=== PATIENT | female | born 1960 | race African-American/Black ===

== ENCOUNTER 2018-03-15 06:43 | Inpatient (IN) ==
--- NOTE | 2018-03-14 17:00 | Discharge Summary ---
<Nila Ramirez - Last Filed: 03/14/18 16:57> Date of Encounter: 03/14/18 - Discharge Diagnosis (1) Status post bilateral knee replacements Priority: Primary Status: Acute (2) Arthritis of both knees Priority: Primary Status: Chronic (3) HTN (hypertension) Priority: Secondary Status: Chronic Qualifiers: Hypertension type: unspecified Qualified Code(s): I10 - Essential (primary ) hypertension (4) Obesity Priority: Secondary Status: Chronic Qualifiers: Obesity type: unspecified obesity type Obesity classification: unspecified obesity classification Serious obesity comorbidity presence: unspecified whether serious comorbidity present Qualified Code(s): E66.9 - Obesity, unspecified (5) History of back pain Priority: Secondary Status: Chronic - Hospital Course Hospital course: Ms. Hernadez is a 57 year old female - Time Spent with Patient Total time spent providing and/or coordinating discharge services: - Discharge Medications Home Medications: Aspirin Enteric Coated [Aspirin EC] 325 mg PO BID 10 Days #20 tablet. [Rx] Oxycodone HCl 5 mg PO Q6H PRN 7 Days #28 tablet 03/14/18 [Rx] Acetaminophen/Butalbital/Caffe [Fioricet] 1 tab PO Q4H PRN 03/15/18 [History] Biotin [Robinson Biotin] 10,000 mcg PO DAILY 03/15/18 [History] Cyclobenzaprine [Flexeril] 10 mg PO TID PRN 03/15/18 [History] Gabapentin [Neurontin] 100 mg PO TID 03/15/18 [History] Ibuprofen [Motrin Ib] 800 mg PO TID PRN 03/15/18 [History] Meloxicam 15 mg PO DAILY 03/15/18 [History] Triamterene/HCTZ 37.5/25mg [Dyazide] 1 tab PO DAILY 03/15/18 [History] traZODone [TraZODone] 50 mg PO HS 03/15/18 [History] Allergies/Adverse Reactions: 3 Allergy/AdvReac Type Severity Reaction Status Date / Time shellfish derived AdvReac Vomiting Verified 03/15/18 07:37 Primary care physician: Rickey Davies MD - Patient Status Disposition: Home Health Service Condition: Good - Discharge Instructions Follow Up With: Rickey Davies MD [Primary Care Provider] - <Ciaran Michele Sal - Last Filed: 03/18/18 06:25> Orders not resulted at time of discharge: Pending orders 03/15/18 01:00 XR knee LT limited 1-2V [XR] Routine XR knee RT limited 1-2V [XR] Routine Hemoglobin and Hematocrit [HEME] Routine 03/15/18 07:58 US anesthesia pain block [US] Routine Date of Encounter: 03/18/18 Time of Encounter: 06:25 - Discharge Diagnosis (1) Obesity (BMI 35.0-39.9 without comorbidity) Priority: Secondary Status: Chronic (2) Status post bilateral knee replacements Priority: Primary Status: Acute (3) Arthritis of both knees Priority: Primary Status: Chronic (4) HTN (hypertension) Priority: Secondary Status: Chronic Qualifiers: Hypertension type: unspecified Qualified Code(s): I10 - Essential (primary ) hypertension (5) History of back pain Priority: Secondary Status: Chronic (6) Acute blood loss anemia Priority: Primary Status: Acute - Hospital Course Hospital course: Ms. Hernadez is a 57 year old female As post bilateral total knee replacement. The patient had an uneventful postoperative course. They received antibiotics and physical therapy and were discharged in stable condition. There will follow -up in the office in 2 weeks. - Time Spent with Patient Total time spent providing and/or coordinating discharge services: Primary care physician: Rickey Davies MD - Patient Status Functional capacity at discharge: uses cane/walker Overall status at discharge: patient is progressing back to baseline
--- NOTE | 2018-03-14 17:02 | Physician Discharge Referral ---
Home Health/Hosp Referral Info Transfer to: Home Health Attending Provider: Dr. Ciaran Michele - Diagnosis (1) Status post bilateral knee replacements Priority: Primary Status: Acute (2) Arthritis of both knees Priority: Primary Status: Chronic (3) HTN (hypertension) Priority: Secondary Status: Chronic (4) Obesity Priority: Secondary Status: Chronic (5) History of back pain Priority: Secondary Status: Chronic - Respiratory Orders Smoking Cessation: Smoking cessation has been advised. For more information, call the [place] Tobacco Quit Line at 3-471-BYGA-NOW. - Dressing/Wound Care Site: Bilateral knees Type of Dressing/Treatments w/Frequency: Opsite placed. Keep dressing intact until first follow up appointment. If greater than 50% saturated, notify office, remove dressing and place appropriate dressing back in place. Leave Zipline intact. Opsite dressing is water resistant, not water-proof. OK to shower, but do not get dressing wet. - Diet/Nutrition Diet/Nutrition Orders: Regular - Activity Activity Orders: Up ad marian, Ambulate, Chair, Walker Activity: List: Total Knee replacement Precautions x 6 weeks Apply cold therapy wrap 3-6x/day for 20 minutes at a time. Encourage ambulation throughout the day and incentive spirometer 10x/hour. Elevate affected extremity above heart as tolerated. Brace: Wear knee immobilizer at night x 2 weeks. - Services Needed Following services are medically necessary services: Nursing, Home Health Aide, Physical Therapy, Occupational Therapy - Transfer Medications Prescriptions: Aspirin Enteric Coated [Aspirin EC] 325 mg PO BID 10 Days #20 tablet. Oxycodone HCl 5 mg PO Q6H PRN 7 Days #28 tablet PRN Reason: Severe Pain Home Medications: Aspirin Enteric Coated [Aspirin EC] 325 mg PO BID 10 Days #20 tablet. [Rx] Oxycodone HCl 5 mg PO Q6H PRN 7 Days #28 tablet 03/14/18 [Rx] Allergies/Adverse Reactions: 3 Allergy/AdvReac Type Severity Reaction Status Date / Time shellfish derived Allergy Vomiting Unverified 03/02/18 08:22 Certification: Further, I certify that my clinical findings support that this patient is homebound (i.e. absences from home require considerable and taxing effort and are for medical reasons or adventism services or infrequently or short duration when for other reasons) because: Homebound Reason: Post-surgery restriction and or conditions limit ability to leave home Attestation: My signature below is to certify that this patient is under my care and that I, or nurse practitioner, or a physician undertaker assistant working with me, has a face-to- face encounter with this patient.
--- NOTE | 2018-03-14 17:04 | Physician Discharge Referral ---
[facility] Referral Info Transfer To: [facility] Provider in Charge: Dr. Ciaran Michele - Diagnosis (1) Status post bilateral knee replacements Priority: Primary Status: Acute (2) Arthritis of both knees Priority: Primary Status: Chronic (3) HTN (hypertension) Priority: Secondary Status: Chronic (4) Obesity Priority: Secondary Status: Chronic (5) History of back pain Priority: Secondary Status: Chronic Expected Duration of Placement: Less than 30 days Prognosis: Good Aware of Diagnosis: Patient Aware of Prognosis: Patient - Transfer Medications Prescriptions: Aspirin Enteric Coated [Aspirin EC] 325 mg PO BID 10 Days #20 tablet. Oxycodone HCl 5 mg PO Q6H PRN 7 Days #28 tablet PRN Reason: Severe Pain Home Medications: Aspirin Enteric Coated [Aspirin EC] 325 mg PO BID 10 Days #20 tablet. [Rx] Oxycodone HCl 5 mg PO Q6H PRN 7 Days #28 tablet 03/14/18 [Rx] Allergies/Adverse Reactions: 3 Allergy/AdvReac Type Severity Reaction Status Date / Time shellfish derived Allergy Vomiting Unverified 03/02/18 08:22 - Respiratory Orders Smoking Cessation: Smoking cessation has been advised. For more information, call the [place] Tobacco Quit Line at 2-919-UJID-NOW. - Ancillary Orders May use pressure relief devices daily prn, May go on [place] w/family/respon alliance party w /meds at nurse discretion PRN, May consult with Dentist, Manager Group, Corner Block Cutter PRN - Mobility Orders Chair, Ambulate - Rehabiliation Orders Rehab Potential: Good Rehab Orders: Evaluation for Physical Therapy, Evaluation for Occupational Therapy Other: Total Knee replacement Precautions x 6 weeks Apply cold therapy wrap 3-6x/day for 20 minutes at a time. Encourage ambulation throughout the day and incentive spirometer 10x/hour. Elevate affected extremity above heart as tolerated. Brace: Wear knee immobilizer at night x 2 weeks. - Treatments Skin tear care topically daily PRN per policy List/Other: Opsite placed. Keep dressing intact until first follow up appointment. If greater than 50% saturated, notify office, remove dressing and place appropriate dressing back in place. Leave Zipline intact. Opsite dressing is water resistant, not water-proof. OK to shower, but do not get dressing wet. - Diet Orders Regular CERTIFICATION: I certify that the transfer of the above named patient to an Extended Care Facility is necessary for the continuing treatment of the diagnosis listed. The above information is true and accurate reflection of patient's current condition. Confidential - Redisclosure prohibited without a patient's written consent.
[2018-03-15] MEDS ORDERED: CeFAZolin Syr 2,000MG/20 ML 2,000 MG/20 ML SYRINGE IVPB ONE (07:05)
[2018-03-15] MEDS ORDERED: Ringers Solution, Lactated 1,000 ML IVC SCH (07:15)
[2018-03-15] MEDS ORDERED: *HR* FentaNYL (PF) 100 MCG/2 ML VIAL ONE ×2 (07:40→12:41)
[2018-03-15] MEDS ORDERED: *HR* Propofol 200 MG/20 ML VIAL IVP ONE ×2 (07:40→12:41)
[2018-03-15] MEDS ORDERED: *HR* Midazolam HCl 2 MG/2 ML VIAL ONE ×4 (07:40→12:41)
[2018-03-15] MEDS ORDERED: Lidocaine -MPF 2% 2 ML VIAL ONE ×2 (07:46→12:41)
[2018-03-15] MEDS ORDERED: Ethanol\\Acetic Acid\\Na Ace\\Ben 1,000 ML IRRIG.SOLN IR ONE (07:49)
[2018-03-15] MEDS ORDERED: Pregabalin 75 MG CAPSULE PO ONE (07:57)
[2018-03-15] MEDS ORDERED: Famotidine 20 MG/2 ML VIAL IVP ONE (07:58)
--- NOTE | 2018-03-15 08:04 | History & Physical Report ---
Date of Encounter: 03/15/18 Time of Encounter: 08:04 24 Hour HP Update - Instructions Instructions: If the History and Physical is less than 30 days old and was completed prior to A.M. admission and or procedure and has NOT been updated on calendar day of procedure please complete this update prior to performing procedure. - Update Patient reports changes in Medical Condition: No Changes in examination, assessment, or condition: No Changes in Medication: No Preop tests/diagnostics Reviewed: Yes Surgery Remains Indicated: Yes Consent for Planned Operative Procedure(s) Verified: Yes - Pre-Operative Checklist Preoperative Checklist Indicated: No Prophylactic Antibiotic Ordered: Yes Is VTE Prophylaxis Indicated?: Yes
[2018-03-15] MEDS ORDERED: ROPIVACAINE HCL/PF 0.5% 30 ML VIAL ONE (08:11)
[2018-03-15] MEDS ORDERED: Dexmedetomidine HCl 200 MCG/50 ML MLS IVC ONE (08:11)
[2018-03-15] MEDS ORDERED: Morphine Sulfate/PF 5mg/10mL Vial ONE (08:11)
[2018-03-15] MEDS ORDERED: [UNRECOGNIZED DRUG - OTHER] IVC ONE (08:11)
--- NOTE | 2018-03-15 08:15 | Anesthesia Evaluation PreOp ---
Date of Encounter: 03/15/18 Time of Encounter: 08:10 - Past History Planned Operation: Bilateral TKA Cardiac History: HTN, Hyperlipidemia Pulmonary History: Denies Any Significant HX POULTRYMAN History: Other (Migraine, Lumbar Ablation) Other Medical History: Denies Any Significant HX Anesthesia History: No Prior Anesthetic Complications : No Alcohol Use: none Drug use: none Medications and Allergies Aspirin Enteric Coated [Aspirin EC] 325 mg PO BID 10 Days #20 tablet. [Rx] Oxycodone HCl 5 mg PO Q6H PRN 7 Days #28 tablet 03/14/18 [Rx] Acetaminophen/Butalbital/Caffe [Fioricet] 1 tab PO Q4H PRN 03/15/18 [History] Biotin [Robinson Biotin] 10,000 mcg PO DAILY 03/15/18 [History] Cyclobenzaprine [Flexeril] 10 mg PO TID PRN 03/15/18 [History] Gabapentin [Neurontin] 100 mg PO TID 03/15/18 [History] Ibuprofen [Motrin Ib] 800 mg PO TID PRN 03/15/18 [History] Meloxicam 15 mg PO DAILY 03/15/18 [History] Triamterene/HCTZ 37.5/25mg [Dyazide] 1 tab PO DAILY 03/15/18 [History] traZODone [TraZODone] 50 mg PO HS 03/15/18 [History] 3 Allergy/AdvReac Type Severity Reaction Status Date / Time shellfish derived AdvReac Vomiting Verified 03/15/18 07:37 - Meds/Allergy Pre-op Review Medications Reviewed: Yes Allergies Reviewed: Yes Beta Blockers on Current Med List: No Anesthesia Results - Labs Laboratory Tests 03/02/18 03/02/18 03/02/18 08:22 08:22 08:22 Hgb 13.5 Hct 38.6 PT 10.5 INR 1.0 APTT 29.5 Sodium 138 Potassium 4.7 BUN 16 Creatinine 0.94 - Imaging EKG: report reviewed (SR) Anesthesia Exam O2 Sat Height 1.52 m Height 1.52 m Height 1.52 m Weight 85.275 kg Weight 85.275 kg Weight 85.275 kg O2 Sat by Pulse Oximetry 100 O2 Sat by Pulse Oximetry 100 Vital Signs Temp Pulse Resp BP Pulse Ox 97.9 F 63 18 143/88 100 03/15/18 07:07 03/15/18 07:07 03/15/18 07:07 03/15/18 07:07 03/15/18 07:07 Height: 5'0 Weight: 188 NPO (# of Hours): MN Pain Scale: 0 - HEENT Pupil (Motor): Pupils equal, EOMI Mallampati: II Teeth: Normal Oral Opening: Greater than 3 - POULTRYMAN LOC: Oriented POULTRYMAN Motor: Normal RUE, Normal LUE, Normal RLE, Normal LLE, Normal Face POULTRYMAN Sensory: Normal: RUE, LUE, RLE, LLE, Face - Cardiac Rhythm: Regular Murmur: None JVD: No Carotid Bruit: No - Pulmonary Breath Sounds: bilateral Clear Respiratory Effort: Symmetrical Anesthesia Assess/Plan ASA Score: 2 Modified [place] Scale for Level of Consciousness: Cooperative, oriented, and tranquil Anesthetic Plan: General, Regional, MAC (Discussed SAB with Bilat Adductor Canal Block, possible GA, possible MAC, agrees to proceed) Monitoring Plan: Standard Monitors Recovery Plan: PACU
--- NOTE | 2018-03-15 08:54 | Anesthesia Procedures ---
Date of Encounter: 03/15/18 Time of Encounter: 08:12 Procedures: Anesthesia - Epidural/Spinal Patient ID/Chart reviewed: Yes Patient examined: Yes Supplemental Oxygen: Nasal Cannula (4) Supplemental Oxygen Rate (L/min): 4 Sedation: Versed (mg): 2 Sedation: Fentanyl (mcg): 50 Site Prep: Aseptic Technique, Sterile prep and drape, Povidone-Iodine 1% Patient position: upright Local Anesthetic: Lidocaine 1% Amount of Local Anesthetic used: 5 Interspace Used: L3-L4 Blood: No CSF: Yes Paresthesia: No Spinal Needle Gauge: 24 Spinal Dose: 10mg isobaric marcaine, Duramoprh 0.3mg Vitals + FHT's: Vital Signs/O2 Sat/Glucose, Most Current Temp Pulse Resp BP Pulse Ox 03/15/18 08:50 71 13 124/72 100 03/15/18 08:45 73 13 122/67 100 03/15/18 08:40 73 15 126/73 100 03/15/18 08:35 71 14 155/104 90 03/15/18 08:30 71 16 156/101 97 03/15/18 08:25 74 17 180/110 94 03/15/18 07:25 97.9 F 63 18 143/88 100 03/15/18 07:07 97.9 F 63 18 143/88 100 - Nerve Block Procedure Date: 03/15/18 Time: 08:30 Pre-op Diagnosis: Bilat Knee Arthropathy OA Surgical Procedure: Bilateral TKA Checklist: Correct Patient Identifier Blood Thinner: No Monitor Applied: EKG, BP, Pulse Oximetry Supplemental Oxygen via Nasal Cannula (L/min): 4 Sedation: Versed (mg): 2 Sedation: Fentanyl (mcg): 50 Indication: Post Op Analgesia Pre-op Neuro Deficits: No Block Type: Other (Adductor Canal Block) Catheter placed: No Depth at skin (cm): 4 Sterile Technique: Yes Ultrasound used: Yes Anatomy identified: Yes Visual spread of Local: Yes Neuro Stimulation: No Blood on Needle Aspiration: No Smooth Injection of Local: Yes Pain with Injection of Local: No Prep: Chlorhexadine Needle: 21 x 100 mm Stimuplex Local: Ropivacaine (0.5%), Other (Precedex 20 microgram) Volume (cc): 40cc Number of Attempts: 1 Complications: None/effective block Vitals: Vital Signs/O2 Sat/Glucose, Most Current Temp Pulse Resp BP Pulse Ox 03/15/18 08:50 71 13 124/72 100 03/15/18 08:45 73 13 122/67 100 03/15/18 08:40 73 15 126/73 100 03/15/18 08:35 71 14 155/104 90 03/15/18 08:30 71 16 156/101 97 03/15/18 08:25 74 17 180/110 94 03/15/18 07:25 97.9 F 63 18 143/88 100 03/15/18 07:07 97.9 F 63 18 143/88 100
[2018-03-15] MEDS ORDERED: Acetaminophen IV 1,000 MG/100 ML INFUS..BTL ONE (09:24)
[2018-03-15] MEDS ORDERED: *HR* OxyCODONE Immed Rel 5 MG TABLET PO PRN (09:27)
[2018-03-15] MEDS ORDERED: Ondansetron 4 MG/2 ML VIAL IVP PRN (09:27)
[2018-03-15] MEDS ORDERED: *HR* FentaNYL (PF) 100 MCG/2 ML VIAL IVP PRN (09:27)
[2018-03-15] MEDS ORDERED: Ketorolac 15 MG/ML VIAL IVP ONE (09:27)
[2018-03-15] MEDS ORDERED: *HR* PHENYLEPHRINE 1,000 MCG/10 ML SYRINGE IVP ONE (09:44)
[2018-03-15] MEDS ORDERED: EPHEDrine 50 MG/ML VIAL ONE ×2 (09:54→12:41)
--- NOTE | 2018-03-15 10:40 | Orthopedic Operative Note ---
Date of procedure: 03/15/18 Pre-op diagnosis: Bilateral knee arthritis Post-op diagnosis: same Procedure: Procedure: Bilateral robotic-assisted Total knee replacement Estimated blood loss: 500 cc Hardware: Metal and polyethylene replacement. Brandie Femur: 1 Tibia: 2 TS insert:11 Patella: 36 Exam Under anesthesia: Left knee 0 degree flexion-extension, 7 degree varus. Right knee 0 degrees flexion extension 7 degree varus as calculated by the robot full flexion and no instability Procedural Notes: Grade 4 arthritic changes all 3 compartments both knees Operative procedure: The patient was brought to the operating room and placed on the operating room table. After general anesthesia was administered the operative knee was examined. Findings were noted in the exam under anesthesia. Next will be dictation for both knees surgery began with the left knee followed by the right knee. Any differences will be highlighted. The operative extremity was prepped and draped in sterile surgical fashion. The patient received IV antibiotics prior to skin incision. A standard midline incision was made centered over the patella. The incision was made through the skin and subcutaneous tissue. A medial parapatellar tendon approach was performed. Care was taken to preserve tissue along the medial aspect of the patella. And to protect the patella tendon. The deep MCL was released off the medial tibia. The infra patella fat pad was excised. The patella was everted and cut was made at the level of the insertion of the quadriceps and patella tendon. The patella was sized to a 36 the guide was seated and the lug holes are drilled. Knee was brought into flexion. Patient noted to have grade 4 arthritic changes all 3 compartments in both knees. Steinmann pins were placed in the tibia and the femur for the tibial and femoral arrays respectively. Checkpoints were also placed in the tibia and the femur for calculation purposes. The knee including the femur and the tibial registered. Osteophytes, ACL and PCL were excised at this point. Extension and flexion were assessed with a valgus stress components were adjusted on the computer to balance the knee. Femoral cuts were made first with robotic assistance, these included the anterior cut posterior cuts chamfer cuts. Tibial cut was then performed with robotic assistance as well. Bone fragments were removed, as well as the medial and lateral meniscus. The size 1 femoral guide was seated box cut was made lug holes are drilled. The size 2 tibial tray was seated and prepared with the fin cutter. Trial reduction with the 11 TS Valeria revealed extension of 0 degree and 3 degree varus left knee 5 degree varus right knee full flexion. No varus valgus instability. Trial reduction revealed excellent patella tracking. All trial components were removed all bony surfaces were irrigated. The Tibia was seated followed by the femur, The Valeria size 11 was seated and secured patella. Patient had similar findings for motion and stability. The knee was closed by the PA. The knee was then irrigated out with 2 L of pulse irrigation. The extensor mechanism was closed with #2 FiberWire suture and #2 PDS suture. The subcutaneous tissue was then irrigated and closed deep with #1 PDS suture superficially with 0 PDS suture and skin was closed with zip tie The patient was then placed in a sterile dressing and a postoperative brace extubated and transferred to recovery room in stable condition. Anesthesia: GETA, spinal Surgeon: Ciaran Michele Was there an collections assistant present: Yes Brusher: Wilma Blanco Estimated blood loss (cc): 500 Condition: stable Disposition: PACU
[2018-03-15 12:08] LABS: Hematocrit 32.5 % (35.3-44.9); Hemoglobin 11.4 g/dL (11.5-15.4)
--- NOTE | 2018-03-15 12:11 | Anesthesia Evaluation Post Op ---
Date of Encounter: 03/15/18 Time of Encounter: 12:10 - Vital Signs Vital Signs: Vital Signs/O2 Sat/Glucose, Most Current Temp Pulse Resp BP Pulse Ox 03/15/18 11:50 97.3 F L 60 18 95/66 100 03/15/18 11:40 67 20 98/65 99 03/15/18 11:30 72 20 127/79 99 03/15/18 11:20 97.6 F 74 24 127/89 100 03/15/18 08:50 71 13 124/72 100 03/15/18 08:45 73 13 122/67 100 03/15/18 08:40 73 15 126/73 100 03/15/18 08:35 71 14 155/104 90 03/15/18 08:30 71 16 156/101 97 03/15/18 08:25 74 17 180/110 94 - Lungs Lungs: Clear Ascult./Percussion - Airway Airway: Non-obstructed - Cardiovascular Regular Rate - Mental Status Mental Status: Alert & Oriented, Answers Appropriately - Pain Pain Scale: 0 - Nausea Vomiting Nausea Vomiting: Not Present - Hydration Hydration: Ice chips - Discharge PostOp Status: Transfer Patient to floor
[2018-03-15] MEDS ORDERED: Sennosides 8.6 MG TABLET PO PRN (12:42)
[2018-03-15] MEDS ORDERED: Acetaminophen/Butalbital/CaffeineTABLET PO PRN (12:42)
[2018-03-15] MEDS ORDERED: Naloxone 0.4 MG/ML INJ IVP PRN (12:42)
[2018-03-15] MEDS ORDERED: Temazepam 15 MG CAPSULE PO PRN (12:42)
[2018-03-15] MEDS ORDERED: MOM Conc 10 ML UD.LIQ PO PRN (12:42)
[2018-03-15] MEDS: (Biotin [Mega Biotin] 10,000 MCG) PO SCH (13:26)
[2018-03-15] MEDS: Gabapentin 100 MG CAPSULE PO SCH ×3 (13:26→20:23)
[2018-03-15] MEDS: Ringers Solution, Lactated 1,000 ML IVC SCH (13:34)
[2018-03-15] MEDS: *HR* Enoxaparin 30 MG/0.3 ML SYRINGE SQ SCH (16:36)
[2018-03-15] MEDS ORDERED: *HR* Enoxaparin 30 MG/0.3 ML SYRINGE SQ SCH (18:00)
[2018-03-15] MEDS: traZODone 50 MG TABLET PO SCH (20:23)
[2018-03-15] MEDS: Ondansetron 4 MG/2 ML VIAL IVP PRN (20:24)
[2018-03-16 02:13] LABS: Hematocrit 27.8 % (35.3-44.9)
[2018-03-16 02:30] LABS: BUN/Creatinine Ratio 20 (6-26); Blood Urea Nitrogen 17 mg/dL (6-20); Calcium 9.1 mg/dL (8.6-10.3); Carbon Dioxide 19 mEq/L (23-29); Chloride 108 mEq/L (98-107); Glucose 124 mg/dL (70-105); Osmolality,Calculated 289 (280-300); Potassium 5.4 mEq/L (3.5-5.1); Sodium 138 mEq/L (136-145); eGFR For African Americans > 60 (> 60); eGFR For Non-African Americans > 60 (> 60)
[2018-03-16] MEDS: Ringers Solution, Lactated 1,000 ML IVC SCH ×2 (05:12→19:00)
[2018-03-16] MEDS: *HR* Enoxaparin 30 MG/0.3 ML SYRINGE SQ SCH ×2 (05:14→18:01)
[2018-03-16] MEDS: Acetaminophen IV 1,000 MG/100 ML INFUS..BTL IVPB PRN ×2 (05:15→10:52)
--- NOTE | 2018-03-16 06:26 | Orthopedics Progress Note ---
Date of Encounter: 03/16/18 Time of Encounter: 06:26 - Assessment and Plan (1) Obesity (BMI 35.0-39.9 without comorbidity) Current Visit: Yes Status: Chronic (2) Status post bilateral knee replacements Current Visit: No Status: Acute (3) Arthritis of both knees Current Visit: No Status: Chronic (4) HTN (hypertension) Current Visit: No Status: Chronic Qualifiers: Hypertension type: unspecified Qualified Code(s): I10 - Essential (primary ) hypertension (5) History of back pain Current Visit: No Status: Chronic (6) Acute blood loss anemia Current Visit: Yes Status: Acute Subjective Interval history: Patient was seen this morning doing well without complaints. Afebrile vital signs stable. Operative extremity: Neurovascularly intact Dressing clean dry and intact Calves nontender Assessment and plan: Continue with postoperative care Hematocrit 27.8 Objective Vital signs: Vital Signs Temp Pulse Resp BP Pulse Ox 03/16/18 03:29 97.7 F 76 16 104/67 95 03/15/18 23:45 97.6 F 69 16 96/61 100 03/15/18 20:55 100 03/15/18 19:35 97.7 F 65 16 93/61 100 03/15/18 18:01 58 99/66 03/15/18 16:25 97.4 F L 64 18 95/60 98 03/15/18 14:50 97.7 F 58 14 92/64 97 03/15/18 13:50 97.6 F 61 16 107/65 97 03/15/18 13:20 97.6 F 77 15 100/62 98 03/15/18 12:53 97.4 F L 63 18 97/64 95 03/15/18 12:22 95 03/15/18 12:05 97.3 F L 68 18 97/63 99 03/15/18 11:50 97.3 F L 60 18 95/66 100 03/15/18 11:40 67 20 98/65 99 03/15/18 11:30 72 20 127/79 99 03/15/18 11:20 97.6 F 74 24 127/89 100 03/15/18 08:50 71 13 124/72 100 03/15/18 08:45 73 13 122/67 100 03/15/18 08:40 73 15 126/73 100 03/15/18 08:35 71 14 155/104 90 03/15/18 08:30 71 16 156/101 97 03/15/18 08:25 74 17 180/110 94 03/15/18 07:25 97.9 F 63 18 143/88 100 03/15/18 07:07 97.9 F 63 18 143/88 100 Intake and Output 03/15/18 03/15/18 03/16/18 15:59 23:59 07:59 Intake Total 100 / 100 1100 / 1100 Output Total 500 / 500 250 / 250 Balance -500 / -500 -150 / -150 1100 / 1100 Intake: IV Fluids 100 / 100 1100 / 1100 Lactated Ringers 1,000 ML @ 75 1000 / 1000 mls/hr IVC .[id number] [facility] Rx#: [id number] Ofirmev 1,000 mg/100 ml 1,000 100 / 100 mg In 100 ml @ 400 mls/hr IVPB Q6HR PRN Rx#:[id number] Ancef 2,000 MG In 0.9 % Sodium 100 / 100 Chloride 100 ML @ 200 mls/hr IVPB Q8HR [facility] Rx#:[id number] Output: Urine 250 / 250 Estimated Blood Loss 500 / 500 Other: # Voids 1 Weight 108.7 kg Patient Weight 03/16/18 23:59 Weight 108.7 kg - Labs CBC & BMP: 03/16/18 02:05 03/16/18 02:05 Labs: Abnormal lab results Hgb 10.0 g/dL (11.5-15.4) L 03/16/18 02:05 Hct 27.8 % (35.3-44.9) L 03/16/18 02:05 Potassium 5.4 mEq/L (3.5-5.1) H 03/16/18 02:05 Chloride 108 mEq/L (98-107) H 03/16/18 02:05 Carbon Dioxide 19 mEq/L (23-29) L 03/16/18 02:05 Glucose 124 mg/dL (70-105) H 03/16/18 02:05 - VTE Documentation of Mechanical Device: Venous foot pump, device Consult Discharge Plan - Plan Referrals: Rickey Davies MD [Primary Care Provider] -
[2018-03-16] MEDS: Gabapentin 100 MG CAPSULE PO SCH ×3 (07:53→20:20)
[2018-03-16] MEDS: *HR* OxyCODONE/APAP 5/325 TABLET PO PRN (07:53)
[2018-03-16] MEDS: (Biotin [Mega Biotin] 10,000 MCG) PO SCH (07:54)
[2018-03-16] MEDS: Ondansetron 4 MG/2 ML VIAL IVP PRN ×2 (07:58→13:43)
[2018-03-16] MEDS: traMADol 50 MG TABLET PO PRN (11:15)
--- NOTE | 2018-03-16 11:57 | Event Note ---
Date of Encounter: 03/16/18 Time of Encounter: 11:54 PCR- POD#1 status post bilateral total knee replacement Dr. Michele 03/15/18 PCR - Patient seen at bedside. Patient's spouse sleeping on couch. He did not wake up for visit. Labwork and medications reviewed. H/H 07/24.8 Vital signs reviewed. Pain control: Adequate Participating in PT. All questions and concerns addressed. Educated on use of incentive spirometer, ambulation, and hydration. Patient educated on post-operative restrictions and care. Addressed: see above. D/C plan: Home with home health - possibly tomorrow
[2018-03-16] MEDS: *HR* OxyCODONE Immed Rel 5 MG TABLET PO PRN ×2 (13:43→18:01)
[2018-03-16] MEDS: traZODone 50 MG TABLET PO SCH (20:20)
[2018-03-17] MEDS: *HR* OxyCODONE Immed Rel 5 MG TABLET PO PRN ×5 (00:03→20:06)
[2018-03-17] MEDS: Ondansetron 4 MG/2 ML VIAL IVP PRN ×4 (00:06→20:05)
[2018-03-17 01:49] LABS: Hematocrit 26.6 % (35.3-44.9); Hemoglobin 9.3 g/dL (11.5-15.4)
[2018-03-17 02:10] LABS: BUN/Creatinine Ratio 13 (6-26); Blood Urea Nitrogen 9 mg/dL (6-20); Calcium 9.2 mg/dL (8.6-10.3); Carbon Dioxide 26 mEq/L (23-29); Chloride 103 mEq/L (98-107); Glucose 154 mg/dL (70-105); Osmolality,Calculated 282 (280-300); Potassium 4.5 mEq/L (3.5-5.1); Sodium 135 mEq/L (136-145); eGFR For African Americans > 60 (> 60); eGFR For Non-African Americans > 60 (> 60)
[2018-03-17] MEDS: *HR* OxyCODONE/APAP 5/325 TABLET PO PRN ×3 (03:38→23:07)
[2018-03-17] MEDS: *HR* Enoxaparin 30 MG/0.3 ML SYRINGE SQ SCH ×2 (06:01→17:48)
[2018-03-17] MEDS ORDERED: Acetaminophen IV 1,000 MG/100 ML INFUS..BTL IVPB PRN (06:23)
[2018-03-17] MEDS: Gabapentin 100 MG CAPSULE PO SCH ×3 (08:16→20:05)
[2018-03-17] MEDS: Ketorolac 30 MG/ML VIAL IVP PRN ×2 (08:16→17:48)
--- NOTE | 2018-03-17 08:36 | Orthopedics Progress Note ---
Date of Encounter: 03/17/18 Time of Encounter: 08:36 - Assessment and Plan (1) Obesity (BMI 35.0-39.9 without comorbidity) Current Visit: Yes Status: Chronic (2) Status post bilateral knee replacements Current Visit: No Status: Acute (3) Arthritis of both knees Current Visit: No Status: Chronic (4) HTN (hypertension) Current Visit: No Status: Chronic Qualifiers: Hypertension type: unspecified Qualified Code(s): I10 - Essential (primary ) hypertension (5) History of back pain Current Visit: No Status: Chronic (6) Acute blood loss anemia Current Visit: Yes Status: Acute Subjective Interval history: Patient was seen this morning doing well without complaints. Afebrile vital signs stable. Operative extremity: Neurovascularly intact Dressing clean dry and intact Calves nontender Assessment and plan: Continue with postoperative care Hb 9.3 Objective Vital signs: Vital Signs Temp Pulse Resp BP Pulse Ox 03/17/18 07:11 98.5 F 112 16 188/97 99 03/17/18 03:29 98.7 F 103 18 182/95 97 03/16/18 23:43 98.9 F 99 16 143/82 97 03/16/18 20:27 99 03/16/18 19:34 98.6 F 86 14 153/82 99 03/16/18 15:22 97.6 F 70 16 130/78 100 03/16/18 11:19 97.6 F 68 18 108/67 95 Intake and Output 03/16/18 03/17/18 03/17/18 23:59 07:59 15:59 Intake Total 1400 / 1400 200 / 200 Output Total 250 / 250 0 / 0 Balance 1150 / 1150 200 / 200 Intake: IV Fluids 1000 / 1000 Lactated Ringers 1,000 ML @ 75 1000 / 1000 mls/hr IVC .[id number] Rx#: [id number] Oral 400 / 400 200 / 200 Output: Urine 250 / 250 0 / 0 Other: # Voids 1 1 Weight 109.58 kg Patient Weight 03/17/18 23:59 Weight 109.58 kg - Labs CBC & BMP: 03/17/18 01:19 03/17/18 01:19 Labs: Abnormal lab results Hgb 9.3 g/dL (11.5-15.4) L 03/17/18 01:19 Hct 26.6 % (35.3-44.9) L 03/17/18 01:19 Sodium 135 mEq/L (136-145) L 03/17/18 01:19 Glucose 154 mg/dL (70-105) H 03/17/18 01:19 - VTE Documentation of Mechanical Device: Venous foot pump, device Consult Discharge Plan - Plan Referrals: Rickey Davies MD [Primary Care Provider] -
[2018-03-17] MEDS: traMADol 50 MG TABLET PO PRN (13:39)
--- NOTE | 2018-03-17 18:26 | Event Note ---
Date of Encounter: 03/17/18 Time of Encounter: 11:55 PCR- POD#2 status post bilateral total knee replacement Dr. Michele 03/15/18 PCR - Patient seen at bedside. Patient's spouse at bedside. Labwork and medications reviewed. 03/16 H/H 10.8 03/17 H/H 9.3/.6 Vital signs reviewed. Pain control: Adequate Participating in PT. All questions and concerns addressed. Educated on use of incentive spirometer, ambulation, and hydration. Patient educated on post-operative restrictions and care. Addressed: see above. D/C plan: Home with home health - tomorrow rather than today secondary to patient unsteadiness - improving however patient feeling unsafe. Will have her continue with therapy services this afternoon and in the morning.
[2018-03-17] MEDS: traZODone 50 MG TABLET PO SCH (20:05)
[2018-03-18] MEDS: *HR* Enoxaparin 30 MG/0.3 ML SYRINGE SQ SCH ×2 (04:37→16:24)
[2018-03-18] MEDS: *HR* OxyCODONE Immed Rel 5 MG TABLET PO PRN ×5 (04:37→23:15)
[2018-03-18] MEDS: Ondansetron 4 MG/2 ML VIAL IVP PRN ×3 (04:37→23:18)
--- NOTE | 2018-03-18 06:26 | Orthopedics Progress Note ---
Date of Encounter: 03/18/18 Time of Encounter: 06:26 - Assessment and Plan (1) Obesity (BMI 35.0-39.9 without comorbidity) Current Visit: Yes Status: Chronic (2) Status post bilateral knee replacements Current Visit: No Status: Acute (3) Arthritis of both knees Current Visit: No Status: Chronic (4) HTN (hypertension) Current Visit: No Status: Chronic Qualifiers: Hypertension type: unspecified Qualified Code(s): I10 - Essential (primary ) hypertension (5) History of back pain Current Visit: No Status: Chronic (6) Acute blood loss anemia Current Visit: Yes Status: Acute Subjective Interval history: Patient was seen this morning doing well without complaints. Afebrile vital signs stable. Operative extremity: Neurovascularly intact Dressing clean dry and intact Calves nontender Assessment and plan: Continue with postoperative care Discharged today Objective Vital signs: Vital Signs Temp Pulse Resp BP Pulse Ox 03/18/18 04:28 98.6 F 107 16 120/74 96 03/17/18 23:17 98.7 F 107 16 111/71 98 03/17/18 21:10 99 03/17/18 18:39 99.5 F 124 16 119/69 99 03/17/18 15:27 99 F 116 16 163/95 98 03/17/18 10:59 98.6 F 96 16 160/89 99 03/17/18 07:11 98.5 F 112 16 188/97 99 Intake and Output 03/17/18 03/17/18 03/18/18 15:59 23:59 07:59 Intake Total 540 / 540 Balance 540 / 540 Intake: Oral 540 / 540 Other: Meal Lunch Percent of Meal Consumed 50% # Voids 1 2 - Labs CBC & BMP: 03/17/18 01:19 03/17/18 01:19 Labs: Abnormal lab results Hgb 9.3 g/dL (11.5-15.4) L 03/17/18 01:19 Hct 26.6 % (35.3-44.9) L 03/17/18 01:19 Sodium 135 mEq/L (136-145) L 03/17/18 01:19 Glucose 154 mg/dL (70-105) H 03/17/18 01:19 - VTE Documentation of Mechanical Device: Venous foot pump, device Consult Discharge Plan - Plan Referrals: Rickey Davies MD [Primary Care Provider] -
[2018-03-18] MEDS: Gabapentin 100 MG CAPSULE PO SCH (07:55)
[2018-03-18] MEDS: Acetaminophen IV 1,000 MG/100 ML INFUS..BTL IVPB PRN (07:56)
[2018-03-18] MEDS: traMADol 50 MG TABLET PO PRN (09:55)
[2018-03-18] MEDS: Ketorolac 30 MG/ML VIAL IVP PRN (09:55)
[2018-03-18] MEDS ORDERED: Ibuprofen 600 MG TABLET PO PRN (10:00)
--- NOTE | 2018-03-18 13:16 | Event Note ---
Date of Encounter: 03/18/18 Time of Encounter: 12:00 PCR- POD#3 status post bilateral total knee replacement Dr. Michele 03/15/18 PCR - Patient seen at bedside. Patient's spouse at bedside. Labwork and medications reviewed. 03/16 H/H 10.8 03/17 H/H 9.3/.6 Vital signs reviewed. Patient with mildly elevated heart rate. Pain control: Adequate with Oxycodone, Tramadol, Gabapentin, Flexeril, Ibuprofen , Tylenol, Zofran, and Lidoderm patches. Participating in PT. All questions and concerns addressed. Educated on use of incentive spirometer, ambulation, and hydration. Patient educated on post-operative restrictions and care. Addressed: see above. D/C plan: Home with home health - tomorrow rather than today secondary to difficulty with pain control regimen - improving however patient feeling unsafe. Will have her continue with therapy services this afternoon and in the morning.
[2018-03-18] MEDS ORDERED: Acetaminophen 325 MG TABLET PO PRN (13:18)
[2018-03-18] MEDS: Gabapentin 300 MG CAPSULE PO SCH ×2 (16:23→21:08)
[2018-03-18] MEDS: traZODone 50 MG TABLET PO SCH (21:08)
[2018-03-19] MEDS: traMADol 50 MG TABLET PO PRN (00:38)
[2018-03-19] MEDS: *HR* Enoxaparin 30 MG/0.3 ML SYRINGE SQ SCH (05:35)
[2018-03-19] MEDS: *HR* OxyCODONE Immed Rel 5 MG TABLET PO PRN ×2 (05:36→11:18)
[2018-03-19] MEDS ORDERED: Ondansetron ODT 4 MG TAB.RAPDIS SL PRN (05:40)
--- NOTE | 2018-03-19 06:50 | Orthopedics Progress Note ---
Date of Encounter: 03/19/18 Time of Encounter: 06:50 - Assessment and Plan (1) Obesity (BMI 35.0-39.9 without comorbidity) Current Visit: Yes Status: Chronic (2) Status post bilateral knee replacements Current Visit: No Status: Acute (3) Arthritis of both knees Current Visit: No Status: Chronic (4) HTN (hypertension) Current Visit: No Status: Chronic Qualifiers: Hypertension type: unspecified Qualified Code(s): I10 - Essential (primary ) hypertension (5) History of back pain Current Visit: No Status: Chronic (6) Acute blood loss anemia Current Visit: Yes Status: Acute Subjective Interval history: Patient was seen this morning doing well without complaints. Afebrile vital signs stable. Operative extremity: Neurovascularly intact Dressing clean dry and intact Calves nontender Assessment and plan: Continue with postoperative care Discharged today Objective Vital signs: Vital Signs Temp Pulse Resp BP Pulse Ox 03/19/18 06:33 97.8 F 115 17 117/63 96 03/19/18 04:26 99.1 F 115 16 136/80 97 03/19/18 00:38 100.2 F H 112 16 144/80 96 03/18/18 19:30 99.2 F 86 16 116/70 97 03/18/18 15:24 98.6 F 94 17 101/65 100 Intake and Output 03/18/18 03/18/18 03/19/18 15:59 23:59 07:59 Intake Total 340 / 340 100 / 100 50 / 50 Balance 340 / 340 100 / 100 50 / 50 Intake: IV Fluids 100 / 100 Ofirmev 1,000 mg/100 ml 1,000 100 / 100 mg In 100 ml @ 400 mls/hr IVPB Q6HR PRN Rx#:[id number] Oral 240 / 240 100 / 100 50 / 50 Other: Meal Lunch Percent of Meal Consumed 100% # Voids 1 - Labs CBC & BMP: 03/17/18 01:19 03/17/18 01:19 Labs: Abnormal lab results Hgb 9.3 g/dL (11.5-15.4) L 03/17/18 01:19 Hct 26.6 % (35.3-44.9) L 03/17/18 01:19 Sodium 135 mEq/L (136-145) L 03/17/18 01:19 Glucose 154 mg/dL (70-105) H 03/17/18 01:19 - VTE Documentation of Mechanical Device: Venous foot pump, device Consult Discharge Plan - Plan Referrals: Rickey Davies MD [Primary Care Provider] - Prescriptions: Acetaminophen [Tylenol] 650 mg PO Q6HR PRN 7 Days #56 tablet PRN Reason: Pain Cyclobenzaprine HCl 10 mg PO TID PRN 7 Days #21 tablet PRN Reason: Spasms Gabapentin [Neurontin] 300 mg PO TID 7 Days #21 capsule Ibuprofen [Motrin] 600 mg PO Q6-8H PRN 7 Days #24 tab PRN Reason: Pain Lidocaine Patch [Lidoderm 5% patch] 1 each TP DAILY PRN 30 Days #30 adh..patch PRN Reason: Pain Ondansetron HCl [Zofran] 4 mg PO Q8HR PRN 7 Days #21 tab PRN Reason: Nausea Tramadol HCl [Ultram] 50 mg PO TID PRN 7 Days #21 tab PRN Reason: Breakthrough Pain
[2018-03-19] MEDS: Gabapentin 300 MG CAPSULE PO SCH (08:16)
[2018-03-19 11:13] VITALS: BP 129/77
--- NOTE | 2018-03-19 11:47 | Event Note ---
Date of Encounter: 03/19/18 Time of Encounter: 08:45 PCR- POD#4 status post bilateral total knee replacement Dr. Michele 03/15/18 PCR - Patient seen at bedside. Labwork and medications reviewed. 03/16 H/H 10.8 03/17 H/H 9.3/.6 Vital signs reviewed. Patient with mildly elevated heart rate. Patient anxious and in pain when pulse checked. Pain control: Adequate with Oxycodone, Tramadol, Gabapentin, Flexeril, Ibuprofen , Tylenol, Zofran, and Lidoderm patches. Participating in PT. All questions and concerns addressed. Educated on use of incentive spirometer, ambulation, and hydration. Patient educated on post-operative restrictions and care. Addressed: patient concerned re: swelling. patient educated re: normal vs abnormal swelling following b/l surgery and encouraged to ice and elevate as needed. Educated activity level to increase gradually but that she will be very slow moving for several weeks and patience is essential. Patient verbalized understanding. D/C plan: Home with home health - today.
== END 2018-03-19 11:33 | disposition home health service (06) | DRG 462 ==
LOC: SAMDAY 06:43 → 3NENU 12:21
PROVIDERS: ADMIT Orthopaedic Surgery; ATTEND Orthopaedic Surgery